=== PATIENT | female | born 1985 | race Caucasian/White ===

== ENCOUNTER → 2016-12-09 | Outpatient (CLI) | payer OTHER ==
[~2016-12-09] MED LIST: FERR325T51 PO
[2016-12-09 12:29] LABS: URINE APPEARANCE CLEAR (CLEAR); URINE BILIRUBIN NEG (NEG); URINE COLOR YELLOW; URINE EPITHELIAL CELL AUTO >30 /lpf (0-5); URINE NITRITE NEG (NEG); URINE PH 5.5 (4.5-7.5); URINE SPECIFIC GRAVITY 1.005 (1.000-1.030); UROBILINOGEN NEG (NEG)
[2016-12-09 12:42] LABS: MANUAL MICROSCOPIC REQUIRED? NO; REVIEW REQ? NO
[2016-12-09 12:51] LABS: C-REACTIVE PROTEIN < 0.29 mg/dl (0-0.29); RHEUMATOID FACTOR < 10.0 U/mL (0-15)
== END | disposition home or self-care (01) ==
LOC: C.LABBFT 08:17
PROVIDERS: ATTEND Nurse Practitioner
DX: R21 Rash and other nonspecific skin eruption (principal)

== ENCOUNTER → 2017-05-23 | Outpatient (CLI) | payer OTHER ==
--- NOTE | 2017-05-23 16:02 | DIAGNOSTIC IMAGING REPORT ---
LEFT HAND MIN 3 VIEWS ROUTINE, RIGHT HAND MIN 3 VIEWS ROUTINE CLINICAL HISTORY: I73.00 Raynaud [id number] Thumb painM25.50 Hypermobility COMPARISON STUDY: None. FINDINGS: No fracture or dislocation. Bone mineralization is intact. No erosions identified. Cartilage spaces are maintained. Soft tissues are unremarkable. Mild radial subluxation of the bilateral first metacarpals relation to the trapezium bones. This measures up to 2 mm. IMPRESSION: Mild radial subluxation at the bilateral first carpometacarpal joints. Electronically signed by: Martin Bowens M.D. 05/23/2017 4:01 PM Dictated Date/Time: 05/23/2017 3:59 PM
--- NOTE | 2017-05-23 16:02 | DIAGNOSTIC IMAGING REPORT ---
RIGHT ANKLE MIN 3 VIEWS ROUTINE CLINICAL HISTORY: Raynaud phenomenon. Hypermobility arthralgia. COMPARISON: None FINDINGS: Alignment of the right ankle is anatomic. Talar dome is intact. There is no acute fracture. Lateral view demonstrates a possible 1.3 cm lucent lesion within the anterior aspect of the distal right tibia. This may be artifactual. IMPRESSION: 1. Apparent 1.3 cm lucent lesion within the anterior aspect of the distal right tibia shown only on lateral projection. This could reflect artifact or a lucent lesion. A CT of the right ankle could be obtained. 2. No acute fracture. Electronically signed by: Ken Banks M.D. 05/23/2017 4:00 PM Dictated Date/Time: 05/23/2017 3:57 PM
--- NOTE | 2017-05-23 16:02 | DIAGNOSTIC IMAGING REPORT ---
LEFT HAND MIN 3 VIEWS ROUTINE, RIGHT HAND MIN 3 VIEWS ROUTINE CLINICAL HISTORY: I73.00 Raynaud [id number] Thumb painM25.50 Hypermobility COMPARISON STUDY: None. FINDINGS: No fracture or dislocation. Bone mineralization is intact. No erosions identified. Cartilage spaces are maintained. Soft tissues are unremarkable. Mild radial subluxation of the bilateral first metacarpals relation to the trapezium bones. This measures up to 2 mm. IMPRESSION: Mild radial subluxation at the bilateral first carpometacarpal joints. Electronically signed by: Martin Bowens M.D. 05/23/2017 4:01 PM Dictated Date/Time: 05/23/2017 3:59 PM
== END | disposition home or self-care (01) ==
LOC: C.RAD1850 15:33
PROVIDERS: ATTEND Internal Medicine Rheumatology
DX: I73.00 Raynaud's syndrome without gangrene (principal); M25.50 Pain in unspecified joint; M79.646 Pain in unspecified finger(s); M89.8X6 Other specified disorders of bone, lower leg

== ENCOUNTER → 2017-05-24 | Outpatient (CLI) | payer OTHER ==
[2017-05-30 23:37] LABS: ANTI-CENTROMERE AB <1.0 NEG AI (<1.0 NEG); ANTI-SS-A <1.0 NEG AI (<1.0 NEG); ANTI-SS-B <1.0 NEG AI (<1.0 NEG); DNA ds CRITHIDIA NEGATIVE (NEGATIVE); Sm Antibody <1.0 NEG AI (<1.0 NEG)
== END | disposition home or self-care (01) ==
LOC: C.LAB1850 07:23
PROVIDERS: ATTEND Internal Medicine Rheumatology
DX: I73.00 Raynaud's syndrome without gangrene (principal); M79.646 Pain in unspecified finger(s); M25.50 Pain in unspecified joint

== ENCOUNTER → 2017-06-24 | Outpatient (CLI) | payer OTHER ==
--- NOTE | 2017-06-24 15:21 | DIAGNOSTIC IMAGING REPORT ---
RIGHT ANKLE CT CT DOSE: HISTORY: I73.00 Raynaud [id number] Ankle painR93.7 Abnormal x-ray Right TECHNIQUE: Multiaxial CT images of the right ankle were performed and reformatted in the sagittal and coronal plane without the use of contrast. A dose lowering technique was utilized adhering to the principles of ALARA. COMPARISON: Right ankle 05/23/2017. FINDINGS: No fracture or dislocation. Soft tissues are unremarkable. No abnormal lucency within the distal tibia to correspond to the x-ray abnormality. Therefore, this likely represented the normal overlapping bony structures. Bone mineralization is intact. No erosions. The talar dome is maintained. Cartilage spaces are within normal limits. No osseous lesions. No soft tissue swelling. Question of mild thickening of the peroneus longus tendon. The Achilles, flexor, and extensor tendons are intact. No joint effusion. IMPRESSION: 1. No bony abnormality within the right ankle. Specifically, there is no evidence for a distal tibial lucency described on the prior radiograph. 2. Question of mild thickening of the peroneus longus tendon. This suggests a tendinopathy. Recommend correlation for pain at this location. Electronically signed by: Martin Bowens M.D. 06/24/2017 3:19 PM Dictated Date/Time: 06/24/2017 3:15 PM
== END | disposition home or self-care (01) ==
LOC: C.CTS 14:19
PROVIDERS: ATTEND Internal Medicine Rheumatology
DX: I73.00 Raynaud's syndrome without gangrene (principal); M25.571 Pain in right ankle and joints of right foot; R93.7 Abnormal findings on diagnostic imaging of other parts of musculoskeletal system

== ENCOUNTER → 2017-10-24 | Outpatient (CLI) | payer OTHER ==
[2017-10-24 18:06] LABS: BASO % 0.4 %; BASO ABS # 0.03 K/uL (0-0.2); EOS % 1.8 %; EOS ABS # 0.15 K/uL (0-0.5); HEMATOCRIT 39.9 % (37-47); HEMOGLOBIN 13.3 g/dL (12.0-16.0); IG# 0.02 K/uL (0.00-0.02); LYMPH % 18.5 %; LYMPH ABS # 1.53 K/uL (1.2-3.4); MEAN CELL VOLUME 89.5 fL (80-100); MEAN CORPUSCULAR HEMOGLOBIN 29.8 pg (25-34); MEAN CORPUSCULAR HGB CONC 33.3 g/dl (32-36); MEAN PLATELET VOLUME 10.1 fL (7.4-10.4); MONO % 6.1 %; NEUT ABS # 6.03 K/uL (1.4-6.5); PLATELET COUNT 290 K/uL (130-400); RED CELL DISTRIBUTION WIDTH CV 13.1 % (11.5-14.5); RED CELL DISTRIBUTION WIDTH SD 42.6 fL (36.4-46.3); WHITE BLOOD COUNT 8.26 K/uL (4.8-10.8)
== END | disposition home or self-care (01) ==
LOC: C.LABBFT 11:51
PROVIDERS: ATTEND Obstetrics & Gynecology
DX: N92.0 Excessive and frequent menstruation with regular cycle (principal)

== ENCOUNTER → 2017-11-25 | Outpatient (CLI) | payer OTHER | END | disposition home or self-care (01) | LOC: C.PATHSPEC 13:56 | PROVIDERS: ATTEND Obstetrics & Gynecology | DX: R93.8 Abnormal findings on diagnostic imaging of other specified body structures (principal) ==

== ENCOUNTER → 2018-05-16 | Outpatient (CLI) | payer OTHER ==
[2018-05-16 18:02] LABS: BLOOD UREA NITROGEN 9 mg/dl (7-18); CREATININE 0.97 mg/dl (0.60-1.20); GLUCOSE 84 mg/dl (70-99)
[2018-05-16 18:03] LABS: ALBUMIN 4.4 gm/dl (3.4-5.0); ALKALINE PHOSPHATASE 37 U/L (45-117); ALT/SGPT 20 U/L (12-78); AST/SGOT 12 U/L (15-37); CALCIUM 9.4 mg/dl (8.5-10.1); CARBON DIOXIDE 26 mmol/L (21-32); CHOLESTEROL 192 mg/dl (0-200); LDL CHOLESTEROL CALCULATED 122 mg/dl; POTASSIUM 3.4 mmol/L (3.5-5.1); SODIUM 139 mmol/L (136-145); TOTAL PROTEIN 7.6 gm/dl (6.4-8.2)
== END | disposition home or self-care (01) ==
LOC: C.LAB1850 16:26
PROVIDERS: ATTEND Nurse Practitioner
DX: Z13.228 Encounter for screening for other metabolic disorders (principal); Z13.220 Encounter for screening for lipoid disorders